=== PATIENT | female | born 1980 | race Caucasian/White ===

== ENCOUNTER 2017-08-09 19:39 | Emergency (ER) | payer SELFPAY ==
--- NOTE | 2017-08-09 19:55 | ERPHSYRPT ---
- History of Present Illness Time Seen by Provider: 08/09/17 19:40 Source: patient Exam Limitations: no limitations Physician History: FOR THE PAST WEEK PT HAS HAD HER TYPICAL BI-TEMPORAL MIGRAINE HEADACHE WITH NAUSEA AND SOME SHORTNESS OF AIR WHEN THE PAIN OCCURS. FOR THE PAST 2 HOURS PT HAS FELT JITTERY. PT DENIES CHEST PAIN, VOMITING, ABDOMINAL PAIN, WEAKNESS. Allergies/Adverse Reactions: cephalexin [From Keflex] Allergy (Verified 08/09/17 19:50) naproxen Allergy (Verified 08/09/17 19:50) sumatriptan [From Imitrex] Allergy (Verified 08/09/17 19:50) tramadol [From Ultram] Allergy (Verified 08/09/17 19:50) - Review of Systems Respiratory: Dyspnea (WHEN HEADACHE OCCURS) Cardiac: No Chest Pain Abdominal/Gastrointestinal: Nausea Neurological: Headache, Other (JITTERY) All Other Systems: Reviewed and Negative - Nursing Vital Signs Nursing Vital Signs: Initial Vital Signs Temperature 98.1 F 08/09/17 19:43 Pulse Rate 97 H 08/09/17 19:43 Respiratory Rate 20 08/09/17 19:43 Blood Pressure 122/65 08/09/17 19:43 O2 Sat by Pulse Oximetry 97 08/09/17 19:43 Pain Scale Pain Intensity 6 - Physical Exam General Appearance: alert Eye Exam: PERRL/EOMI Ears, Nose, Throat Exam: pharynx normal, TM abnormal (L) (LEFT TM ERYTHEMATOUS) Neck Exam: normal inspection Respiratory Exam: lungs clear Cardiovascular Exam: normal heart sounds Gastrointestinal/Abdominal Exam: soft, normal bowel sounds Extremity Exam: normal inspection, pedal edema Mental Status Exam: alert, 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 MILD ETHMOID SINUS DISEASE.) Ordered Tests: Active Orders 24 hr Category Date Time Status IV Insertion STAT Care 08/09/17 20:58 Active HEAD WITHOUT CONTRAST [CT] Routine Exams 08/09/17 21:41 Taken AMYLASE Stat Lab 08/09/17 20:04 Completed CBC W DIFF Stat Lab 08/09/17 20:04 Completed CMP Stat Lab 08/09/17 20:04 Completed ETHYL ALCOHOL Stat Lab 08/09/17 20:04 Completed HCG QUALITATIVE,SERUM Stat Lab 08/09/17 20:04 Completed LIPASE Stat Lab 08/09/17 20:04 Completed MAGNESIUM Stat Lab 08/09/17 20:04 Completed SODIUM Stat Lab 08/09/17 22:07 Completed UA W/RFX UR CULTURE Stat Lab 08/09/17 20:00 Completed Urine Triage Profile Stat Lab 08/09/17 20:00 Completed Medication Summary Discontinued Medications Generic Name Dose Route Start Last Admin Trade Name Davey PRN Reason Stop Dose Admin Azithromycin 500 mg 08/09/17 22:08 08/09/17 22:14 Zithromax 250 Mg Tablet PO 08/09/17 22:09 500 mg STAT ONE Administration Azithromycin Confirm 08/09/17 22:13 Zithromax 250 Mg Tablet Administered 08/09/17 22:14 Dose 500 mg .ROUTE .STK-MED ONE Fentanyl Citrate 50 mcg 08/09/17 20:59 08/09/17 21:14 Sublimaze 100 Mcg/2 Ml IV 08/09/17 21:00 50 mcg STAT ONE Administration Fentanyl Citrate Confirm 08/09/17 21:10 Sublimaze 100 Mcg/2 Ml Administered 08/09/17 21:11 Dose 100 mcg .ROUTE .STK-MED ONE Hydromorphone HCl 1 mg 08/09/17 20:21 08/09/17 20:30 Hydromorphone 1 Mg/Ml Ampule IM 08/09/17 20:22 1 mg STAT ONE Administration Hydromorphone HCl Confirm 08/09/17 20:27 Hydromorphone 1 Mg/Ml Ampule Administered 08/09/17 20:28 Dose 1 mg .ROUTE .STK-MED ONE Sodium Chloride 1,000 mls @ 999 mls/hr 08/09/17 20:58 08/09/17 21:14 Sodium Chloride 0.9% 1000 Ml IV 08/09/17 21:58 999 mls/hr .Q1H1M STA Administration Sodium Chloride Confirm 08/09/17 21:10 Sodium Chloride 0.9% 1000 Ml Administered 08/09/17 21:11 Dose 1,000 mls @ ud .ROUTE .STK-MED ONE Ondansetron HCl 4 mg 08/09/17 20:59 08/09/17 21:17 Zofran 4 Mg/2 Ml Vial IV 08/09/17 21:00 4 mg STAT ONE Administration Ondansetron HCl Confirm 08/09/17 21:09 Zofran 4 Mg/2 Ml Vial Administered 08/09/17 21:10 Dose 4 mg .ROUTE .STK-MED ONE Promethazine HCl 25 mg 08/09/17 20:21 08/09/17 20:29 Phenergan 25 Mg Inj IM 08/09/17 20:22 25 mg STAT ONE Administration Promethazine HCl Confirm 08/09/17 20:27 Phenergan 25 Mg Inj Administered 08/09/17 20:28 Dose 25 mg .ROUTE .STK-MED ONE Lab/Rad Data: Laboratory Result Diagrams 08/09/17 20:04 08/09/17 22:07 Laboratory Results 08/09/17 08/09/17 08/09/17 Range/Units 22:07 20:04 20:04 WBC (4.0-10.5) K/mm3 RBC (4.1-5.4) M/mm3 Hgb (12.0-16.0) gm/dl Hct (35-47) % MCV (78-100) fl MCH (26-32) pg MCHC (32-36) g/dl RDW (11.5-14.0) % Plt Count (150-450) K/mm3 MPV (6-9.5) fl Gran % (36.0-66.0) % Lymphocytes % (24.0-44.0) % Monocytes % (0.0-12.0) % Eosinophils % (0.00-5.0) % Basophils % (0.0-0.4) % Basophils # (0-0.4) Sodium 142 139 (136-145) mEq/L Potassium 3.6 (3.5-5.1) mEq/L Chloride 102 (98-107) mEq/L Carbon Dioxide 23.9 (21-32) mEq/L Anion Gap 0.2 L (5-15) MEQ/L BUN 14 (9-20) mg/dL Creatinine 1.13 (0.55-1.30) mg/dl Estimated GFR 58 ML/MIN Glucose 115 H (70-110) MG/DL Calcium 8.8 (8.5-10.1) mg/dL Magnesium 2.1 (1.8-2.4) mg/dL Total Bilirubin 0.20 (0.2-1.0) mg/dL AST 10 L (15-37) U/L ALT 19 (12-78) U/L Alkaline Phosphatase 81 (46-116) U/L Serum Total Protein 6.6 (6.4-8.2) gm/dL Albumin 3.1 L (3.4-5.0) g/dL Amylase 72 (25-115) U/L Lipase 401 H (73-393) U/L Serum , Qual NEGATIVE (Negative) Ur Collection Type Urine Color (YELLOW) Urine Appearance (CLEAR) Urine pH (5-6) Ur Specific Fonda (1.005-1.025) Urine Protein (Negative) Urine Ketones (NEGATIVE) Urine Blood (0-5) Demian/ul Urine Nitrite (NEGATIVE) Urine Bilirubin (NEGATIVE) Urine Urobilinogen (0-1) mg/dL Ur Leukocyte Esterase (NEGATIVE) Urine Glucose (NEGATIVE) mg/dL Urine Opiates Level (NEGATIVE) Ur Methadone (NEGATIVE) Urine Barbiturates (NEGATIVE) Ur Phencyclidine (PCP) (NEGATIVE) Urine Amphetamine (NEGATIVE) U Benzodiazepine Level (NEGATIVE) Urine Cocaine (NEGATIVE) Urine Marijuana (THC) (NEGATIVE) Ethyl Alcohol < 0.010 (0.00-0.01) % Specimen Received 08/09/17 08/09/17 08/09/17 Range/Units 20:04 20:00 20:00 WBC 14.0 H (4.0-10.5) K/mm3 RBC 4.70 (4.1-5.4) M/mm3 Hgb 14.1 (12.0-16.0) gm/dl Hct 42.5 (35-47) % MCV 90.4 (78-100) fl MCH 30.0 (26-32) pg MCHC 33.2 (32-36) g/dl RDW 14.5 H (11.5-14.0) % Plt Count 260 (150-450) K/mm3 MPV 12.4 H (6-9.5) fl Gran % 64.9 (36.0-66.0) % Lymphocytes % 26.9 (24.0-44.0) % Monocytes % 5.7 (0.0-12.0) % Eosinophils % 2.4 (0.00-5.0) % Basophils % 0.1 (0.0-0.4) % Basophils # 0.02 (0-0.4) Sodium (136-145) mEq/L Potassium (3.5-5.1) mEq/L Chloride (98-107) mEq/L Carbon Dioxide (21-32) mEq/L Anion Gap (5-15) MEQ/L BUN (9-20) mg/dL Creatinine (0.55-1.30) mg/dl Estimated GFR ML/MIN Glucose (70-110) MG/DL Calcium (8.5-10.1) mg/dL Magnesium (1.8-2.4) mg/dL Total Bilirubin (0.2-1.0) mg/dL AST (15-37) U/L ALT (12-78) U/L Alkaline Phosphatase (46-116) U/L Serum Total Protein (6.4-8.2) gm/dL Albumin (3.4-5.0) g/dL Amylase (25-115) U/L Lipase (73-393) U/L Serum , Qual (Negative) Ur Collection Type CLEAN CATCH Urine Color YELLOW (YELLOW) Urine Appearance SLIGHTLY CLOUDY (CLEAR) Urine pH 6.5 (5-6) Ur Specific Fonda 1.015 (1.005-1.025) Urine Protein NEGATIVE (Negative) Urine Ketones NEGATIVE (NEGATIVE) Urine Blood NEGATIVE (0-5) Demian/ul Urine Nitrite NEGATIVE (NEGATIVE) Urine Bilirubin NEGATIVE (NEGATIVE) Urine Urobilinogen NORMAL (0-1) mg/dL Ur Leukocyte Esterase NEGATIVE (NEGATIVE) Urine Glucose NEGATIVE (NEGATIVE) mg/dL Urine Opiates Level NEG. (NEGATIVE) Ur Methadone NEG. (NEGATIVE) Urine Barbiturates NEG. (NEGATIVE) Ur Phencyclidine (PCP) NEG. (NEGATIVE) Urine Amphetamine NEG. (NEGATIVE) U Benzodiazepine Level NEG. (NEGATIVE) Urine Cocaine NEG. (NEGATIVE) Urine Marijuana (THC) NEG. (NEGATIVE) Ethyl Alcohol (0.00-0.01) % Specimen Received 08/09/171999 - Departure Time of Disposition: 22:41 Departure Disposition: Home Clinical Impression: MIGRAINE HEADACHE, LOM, SINUSITIS Condition: Stable Critical Care Time: No Referrals: RENEE GARCIA [NON-STAFF PHY W/O PRIVILEGES] - Instructions: Sinusitis, Headache Additional Instructions: FOLLOW UP WITH PRIVATE DOCTOR TOMORROW. Prescriptions: Promethazine HCl 25 mg [Phenergan 25 mg] 25 mg PO Q4H PRN PRN #14 tablet PRN Reason: Nausea/Vomiting Azithromycin 250 mg [Zithromax 250 MG TABLET] 250 mg PO ZPACK #6 tablet
[2017-08-09 20:06] LABS: BASOPHIL % 0.1 % (0.0-0.4); Eosinophil % 2.4 % (0.00-5.0); Granulocytes % 64.9 % (36.0-66.0); Lymphocytes % 26.9 % (24.0-44.0); Mean Cell Volume 90.4 fl (78-100); Mean Platelet Volume 12.4 fl (6-9.5); Monocytes % 5.7 % (0.0-12.0); Platelet Count 260 K/mm3 (150-450); Red Cell Distribution Width 14.5 % (11.5-14.0)
[2017-08-09 20:11] LABS: ADD URINE CULTURE? NO (NO); Bilirubin NEGATIVE (NEGATIVE); Blood NEGATIVE Ery/ul (0-5); COMPLETE URINE MICROSCOPIC? NO; Collection Type CLEAN CATCH; Glucose NEGATIVE (NEGATIVE); Leukocyte Esterase NEGATIVE (NEGATIVE)
[2017-08-09] MEDS ORDERED: Phenergan 25 MG INJ IM ONE (20:21)
[2017-08-09] MEDS ORDERED: Hydromorphone 1 mg/ml Ampule IM ONE (20:21)
[2017-08-09] MEDS ORDERED: Phenergan 25 MG INJ ONE (20:27)
[2017-08-09] MEDS ORDERED: Hydromorphone 1 mg/ml Ampule ONE (20:27)
[2017-08-09 20:31] LABS: ALBUMIN 3.1 g/dL (3.4-5.0); ALKALINE PHOSPHATASE 81 U/L (46-116); ANION GAP 0.2 MEQ/L (5-15); BLOOD UREA NITROGEN 14 mg/dL (9-20); CHLORIDE 102 mEq/L (98-107); Carbon Dioxide 23.9 mEq/L (21-32); ETHYL ALCOHOL < 0.010 % (0.00-0.01); Glucose 115 MG/DL (70-110); LIPASE 401 U/L (73-393); MAGNESIUM 2.1 mg/dL (1.8-2.4); Potassium 3.6 mEq/L (3.5-5.1); SGOT/AST 10 U/L (15-37); SGPT/ALT 19 U/L (12-78); Total Protein 6.6 gm/dL (6.4-8.2)
[2017-08-09] MEDS ORDERED: Sodium Chloride 0.9% 1000 ML 1,000 ML IV STA (20:58)
[2017-08-09] MEDS ORDERED: Zofran 4 MG/2 ML VIAL IV ONE (20:59)
[2017-08-09] MEDS ORDERED: SUBLIMAZE 100 MCG/2 ML IV ONE (20:59)
[2017-08-09] MEDS ORDERED: Zofran 4 MG/2 ML VIAL ONE (21:09)
[2017-08-09] MEDS ORDERED: SUBLIMAZE 100 MCG/2 ML ONE (21:10)
[2017-08-09] MEDS ORDERED: Sodium Chloride 0.9% 1000 ML 1,000 ML ONE (21:10)
[2017-08-09] MEDS ORDERED: Zithromax 250 MG TABLET PO ONE (22:08)
[2017-08-09] MEDS ORDERED: Zithromax 250 MG TABLET ONE (22:13)
[2017-08-09 22:28] LABS: SODIUM 139 mEq/L (136-145)
[2017-08-09 22:54] VITALS: BP 114/67; PULSE 76; O2SAT 97
--- NOTE | 2017-08-10 08:43 | XRAY ---
Indication: Headache. Multiple contiguous axial images obtained through the head without contrast. Comparison: None Normal appearing brain parenchyma, ventricles, and bony calvarium. There is mild mucosal thickening of both ethmoid sinuses and lesser degree left sphenoid sinus. Mastoid air cells are clear. Impression: Normal CT head without contrast exam. Incidental paranasal sinus disease. CT DI 69.38
== END 2017-08-09 22:55 | disposition home or self-care (01) ==
LOC: ED 19:39
DX: G43.909 Migraine, unspecified, not intractable, without status migrainosus (principal); H66.92 Otitis media, unspecified, left ear; J32.9 Chronic sinusitis, unspecified
CPT/HCPCS: 36000; 36415; 70450; 80053; 80307; 81002; 82150; 83690; 83735; 84295; 84703; 85025; 96372; 96374; 96375; 99283; 99284; G0481; J1170; J2405; J2550; J3010; A9270-GY